=== PATIENT | female | born 1950 | race Caucasian/White ===

== ENCOUNTER 2021-07-17 07:16 | Outpatient (CLI) | payer OTHER ==
[2021-07-17] MEDS ORDERED: Iopamidol 370 76% 100 ML VIAL ONE (09:19)
== END 2021-07-17 07:17 | disposition home or self-care (01) ==
LOC: CT 07:16
PROVIDERS: ATTEND Family Medicine
DX: R79.89 Other specified abnormal findings of blood chemistry (principal)
CPT/HCPCS: 71275

== ENCOUNTER 2024-10-07 10:03 | Outpatient (CLI) | payer OTHER | END 2024-10-07 10:04 | disposition home or self-care (01) | LOC: BICRAD 10:03 | PROVIDERS: ATTEND Student in an Organized Health Care Education/Training Program | DX: R06.00 Dyspnea, unspecified (principal) | CPT/HCPCS: 71046 ==

== ENCOUNTER 2024-12-21 10:08 | Outpatient (CLI) | payer MEDICARE | END 2024-12-21 10:09 | disposition home or self-care (01) | LOC: RAD 10:08 | PROVIDERS: ATTEND Internal Medicine Critical Care Medicine | DX: R06.00 Dyspnea, unspecified (principal) | CPT/HCPCS: 71046 ==

== ENCOUNTER 2024-12-21 14:36 | Outpatient (CLI) | payer MEDICARE | END 2024-12-21 14:37 | disposition home or self-care (01) | LOC: ULT 14:36 | PROVIDERS: ATTEND Family Medicine | DX: R42 Dizziness and giddiness (principal) | CPT/HCPCS: 71046; 93880 ==